=== PATIENT | male | born 1965 | race Caucasian/White ===

== ENCOUNTER → 2021-04-23 | Outpatient (CLI) | payer OTHER ==
[~2021-04-23] MED LIST: IOHEXOL 300 MG/ML 75 ML VIAL. IV ONE
--- NOTE | 2021-04-23 09:16 | RAD ---
EXAMINATION: CT abdomen and pelvis with IV contrast. INDICATION:56 years, Male, neoplasm of prostate.. TECHNIQUE: Axial CT images of the abdomen and pelvis were obtained. Coronal and sagittal reformatted performed. COMPARISON: None. Exposure: One or more of the following individualized dose reduction techniques were utilized for thi s examination: 1. Automated exposure control 2. Adjustment of the mA and/or kV according to patient size 3. Use of iterative reconstruction technique. FINDINGS: LOWER CHEST: Unremarkable ABDOMEN/PELVIS: Liver, gallbladder, biliary ducts, spleen, pancreas adrenals and kidneys are unremarkable. Normal niecy iber abdominal aorta. No pneumoperitoneum or ascites. Colonic diverticulosis without diverticulitis. No bowel wall thickening or dilation. Normal appendix. Nonspecific nonenlarged upper abdominal and re troperitoneal lymph nodes. No pelvic lymphadenopathy by size criteria. Radha fat in the central small bowel mesentery with prominent mesenteric lymph nodes, nonspecific findings and can be seen in mesen teric panniculitis. Unremarkable urinary bladder. Coarse calcifications in the prostate. No suspiciou s pelvic masses. MUSCULOSKELETAL: A 3 mm sclerotic focus along the superior endplate of T12 vertebral body. Mild multilevel degenerativ e changes throughout the lumbar spine. Chronic mild compression deformity of the lumbar vertebral bod ies. Small fat-containing umbilical hernia. IMPRESSION: 1. Subtle 5 mm sclerotic focus along the superior endplate of T12 vertebral body favors benign etiolo gy such as bone island. Metastasis considered less likely. Recommend correlation with nuclear bone sc an and attention on follow-up examination. 2. Otherwise, no evidence of metastatic disease to the abdomen or pelvis. 3. Coarse calcifications within the prostate, without discrete masses. Electronically signed by: Asuncion Arroyo MD (04/23/2021 9:13 AM) [id number]
--- NOTE | 2021-04-24 09:32 | RAD ---
NM INJECTION, NM BONE SCAN WHOLE BODY History: Reason: / Spl. Instructions: / History: Prostate cancer. Comparison: CT abdomen and pelvis April 23, 2021. Technique: Examination performed after intravenous administration of 20 mCi Technetium 99m MDP. Imag es of the whole body were obtained in the anterior and posterior projections. Findings: Increased uptake within the bilateral knees and ankles, feet and shoulder, may relate to d egenerative changes. Increased uptake within the lower cervical/upper thoracic spine. Focal increased radiotracer uptake w ithin the right fifth posterior rib. Previously identified tiny sclerotic lesion within T12 superior vertebral body is not well evaluated due to size. No increased tracer uptake within this region. Impression: 1. Increased region of uptake within the lower cervical/upper thoracic spine, may relate to degenera tive changes although metastasis is not excluded. Recommend MRI to further assess. 2. Small focal uptake within right posterior fifth rib, may relate to recent trauma or subtle metast atic lesion. Recommend correlation with history of trauma. 3. Increased uptake within the bilateral knees, right greater than left, likely related to degenerat sinai changes. Radiographs can confirm as clinically warranted. Electronically signed by: Bertrand Pittman DO (04/24/2021 9:29 AM) [id number]
== END ==
LOC: CT 07:37
PROVIDERS: ATTEND Urology
DX: C61 Malignant neoplasm of prostate (principal); K42.9 Umbilical hernia without obstruction or gangrene
CPT/HCPCS: 74177; 78306; A9503; Q9967